=== PATIENT | female | born 1940 | race Caucasian/White ===

== ENCOUNTER 2020-08-15 17:05 | Emergency (ER) | payer OTHER ==
--- OUTSIDE RECORDS SUMMARY | 2020-08-15 17:11 | XMS REPORT | Continuity of Care Document ---
:1940 Author Organization [facility] t Address [address] [place] [address] Dr. Rod[address]guez [address] [place] [address] Care Team Providers Name Role Phone Unavailable Unavailable Unavailable Problems Condition Condition Condition Status Onset Resolution Last Treating Co mments Source Name Details Category Date Date Treatment Clinician Date Depression Depression Diagnosis [facility] Osteopenia Osteopenia Diagnosis [facility] Essential Essential Problem Active [facility] hypertensi hypertensi Mervat kes - on on [facility] l [facility] Cough Cough Problem [facility] Bronchitis Bronchitis Problem [facility] Screening Screening Problem Active [facility] for breast for breast Mervat kes - cancer cancer [facility] Hyperlipem Hyperlipem Diagnosis Active [facility] Other Other Problem Active [facility] chronic chronic [facility] - pain pain [facility] ADILIA ADILIA Diagnosis Active [facility] (obstructi (obstructi Mervat kes - ve sleep ve sleep Memori a apnea) apnea) l [facility] Wheeze Wheeze Problem Active [facility] Fever and Fever and Problem Active [facility] chills chills [facility] Osteoarthr Osteoarthr Problem Active [facility] 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[facility] - multiple multiple Memori a joints, joints, l unspecifie unspecifie Ou tpati d d ent osteoarthr osteoarthr Cl inics itis type itis type Allergies, Adverse Reactions, Alerts Allergy Allergy Status Severity Reaction(s) Onset Inactive Treating Comm ents Source Name Type Date Date Clinician novacane Adverse Active cardiac [facility] Reaction arrest [facility] Lisinopr Adverse Active cough [facility] il Reaction [facility] Medications Ordered Filled Start Stop Current Ordering Indication Dosage Frequency Signature Comments Components Source Medication Medication Date Date Medication? Clinician (SIG) Name Name Nicolle VERGARA Yes Kaitlynn [address] [facility] 2-24 [place] needed [facility] - 00:[facility]: [facility] Calcium + Calcium + Yes Kaitlynn [address] [facility] D3 D3 1-30 [place] with a [facility] - 00:00: meal [facility] 00 l [facility] Atorvastati Atorvastati Yes Kaitlynn [address] [facility] n Calcium n Calcium 1-30 [place] Luke s - 00:00: Memoria 00 l [facility] Glucos-Perico Glucos-Perico Yes Kaitlynn not [facility] droit-MSM droit-MSM 1-30 [place] defined L ukes - Complex Complex 00:00: Memoria 00 l [facility] Valsartan Valsartan Yes Kaitlynn [address] [facility] [place] [facility] - [facility] Meloxicam Meloxicam Kaitlynn take one [facility] 06-08 [place] tablet by [facility] - 00:00 mouth Memoria :00 daily l [facility] Procedures This patient has no known procedures. Encounters Start End Encounter Admission Attending Care Care Encounter Source Date/Time Date/Time Type Type Clinicians Facility Department ID 2019-12-19 2019-12-19 Outpatient Lucius Hurley [id number] [facility] 13:00[facility]00 13:00:00 [facility] Medicine Medicine Outpati ent Clinics 2019-12-04 2019-12-04 Outpatient Lucius Hurley [id number] [facility] 14:20:00 14:20:00 [facility] Medicine Medicine Outpati ent Clinics 2019-06-22 2019-06-22 Outpatient Lucius Hurley [id number] 14:00:00 14:00:00 [facility] Medicine l Medicine Outpati ent Clinics 2019-06-02 2019-06-02 Outpatient Lucius Hurley [id number] [facility] 11:00:00 11:00:00 [facility] Medicine l Medicine Outpati ent Clinics Results This patient has no known results.
--- NOTE | 2020-08-15 17:33 | ER ---
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 Sims, pt has been iw experiencing forgetfulness, is easily distracted, loses track of time and has not been interested in the normal things she is interested in, symptoms started over a year ago, pt states her daughter insisted on her being seen by Dr. Sims, had labs and EEG done earlier this week, was told her MRI was abnormal and needs to be seen in ER. Coronavirus screen: At this time, the client does not indicate any symptoms associated with coronavirus-19. Ebola Screen: Patient negative for fever greater than or equal to 101.5 degrees Fahrenheit, and additional compatible Ebola Virus Disease symptoms Patient denies exposure to infectious person. Patient denies travel to an Ebola-affected area in the 21 days before illness onset. No symptoms or risks identified at this time. Initial Sepsis Screen: Does the patient meet any 2 criteria? No. Patient's initial sepsis screen is negative. Does the patient have a suspected source of infection? No. Patient's initial sepsis screen is negative. Risk Assessment: Do you want to hurt yourself or someone else? Patient reports no desire to harm self or others. Onset of symptoms was August 15, 2020. 17:23 Method Of Arrival: Ambulatory iw 17:23 Acuity: CHANTALE 2 iw Historical: - Allergies: 17:27 Novocain; iw - Home Meds: 17:27 valsartan 160 mg oral tab 1 tab once daily [Active]; Lipitor 40 mg Oral tab 1 tab once iw daily [Active]; meloxicam oral oral once daily [Active]; - PMHx: 17:27 Hypertension; Hyperlipidemia; Arthritis; iw - PSHx: 17:27 Hysterectomy; Cholecystectomy; iw - Immunization history:: Adult Immunizations up to date. - Social history:: Smoking status: Patient denies any tobacco usage or history of. Screenin:22 Abuse screen: Denies threats or abuse. Nutritional screening: No deficits noted. rb3 Tuberculosis screening: No symptoms or risk factors identified. Fall Risk None identified. Assessment: 17:22 General: Appears in no apparent distress. comfortable, Behavior is calm, cooperative. rb3 Pain: Denies pain. Neuro: Level of Consciousness is awake, alert, obeys commands, Oriented to person, place, time, situation. Cardiovascular: Capillary refill < 3 seconds Patient's skin is warm and dry. Respiratory: Airway is patent Respiratory effort is even, unlabored, Respiratory pattern is regular, symmetrical. GI: No signs and/or symptoms were reported involving the gastrointestinal system. : Derm: Skin is pink, warm \T\ dry. Musculoskeletal: Range of motion: intact in all extremities. 18:20 Reassessment: Patient appears in no apparent distress at this time. No changes from rb3 previously documented assessment. 18:26 Reassessment: Called report to DELORES Rivera at [facility]. Information from the [facility] was rb3 given. All questions asked and answered. She would like a copy of the lab results sent with the pt if possible. 19:45 Reassessment: Patient appears in no apparent distress at this time. Patient is alert, rr5 oriented x 3, equal unlabored respirations, skin warm/dry/pink. report given to [facility] awake alert vital signs taken and recorded. hemodynamically stable. Vital Signs: 17:48 BP 188 / 71; Pulse 75; Resp 18; Temp 98.1; Pulse Ox 98% on R/A; dh4 18:44 BP 178 / 81; Pulse 74; Resp 16; Pulse Ox 98% on R/A; iw 19:45 BP 171 / 75; Pulse 79; Resp 16; Pulse Ox 99% ; rr5 ED Course: 17:07 Patient arrived in ED. as 17:07 Santy Rust MD is Attending Physician. kdr 17:22 Patient has correct armband on for positive identification. Bed in low position. Call rb3 light in reach. Side rails up X2. phototypesetting equipment monitor on. Pulse ox on. NIBP on. Warm blanket given. 17:25 Triage completed. iw 17:27 Arm band placed on. iw 17:37 CXR XRAY In Process Unspecified. EDMS 18:06 Inserted saline lock: 22 gauge in right antecubital area, using aseptic technique. rb3 Blood collected. 19:44 Bruce, River, RN is Primary Nurse. rr5 19:49 No provider procedures requiring assistance completed. Patient transferred, IV remains rr5 in place. intact, No redness/swelling at site. Administered Medications: 18:08 Drug: Keppra 1000 mg Route: IV; Rate: calculated rate; Site: right antecubital; rb3 18:43 Drug: Decadron - Dexamethasone 10 mg Route: IVP; Site: right antecubital; iw 18:44 Not Given (Physician Discretion): Lopressor 5 mg IVP once; Hold for SBP <100 or HR <60. iw give 2.5 mg at a time Outcome: 17:33 ER care complete, transfer ordered by MD. kdr 19:45 Transferred by ground EMS Transfer form completed. Note: [facility] rr5 19:45 Condition: stable 19:45 Instructed on the need for transfer. 19:45 Demonstrated understanding of instructions. rr5 19:49 Patient left the ED. rr5 Signatures: Dispatcher [employer] EDMS Santy Rust MD MD kdr Marilu Martinez as Wilma Alcala, DELORES RN River Bruce, RN RN rr5 Mike Trivedi [facility] Nathalia Woo, RN RN rb3 Corrections: (The following items were deleted from the chart) 18:18 17:22 Inserted saline lock: 22 gauge in right antecubital area, using aseptic rb3 technique. Blood collected. rb3 21:27 19:45 Transferred by ground EMS to [facility], Transfer form rr5 completed. rr5
--- NOTE | 2020-08-15 17:34 | EDPHYS ---
Physician Documentation [facility] Name: Zoey Russo Age: 79 yrs Sex: Female : 1940 Arrival Date: 08/15/2020 Time: 17:07 Bed 18 Private MD: ED Physician Santy Rust HPI: 08/15 17:33 This 79 yrs old Female presents to ER via Ambulatory with complaints of kdr abnormal mri. 17:33 The patient presents with Increased forgetfulness. Onset: The symptoms/episode kdr began/occurred gradually, 1 month(s) ago. Possible causes: CVA or TIA. Associated signs and symptoms: The patient has no apparent associated signs or symptoms. Current symptoms: In the emergency department the patient's symptoms are unchanged from the initial presentation. Patient's baseline: Neuro: alert and fully oriented, Motor: no deficits, Ambulation: walks without assistance, Speech: normal for age. The patient has not experienced similar symptoms in the past. The patient has been recently seen by a physician: The patient was seen by dr. Sims on the of last month and an outpatient w/u was initiated. Daughter had insisted that the patient be seen since she had had increasing forgetfulness over the past few weeks and months. She has a familial history of dementia. Historical: - Allergies: 17:27 Novocain; iw - Home Meds: 17:27 valsartan 160 mg oral tab 1 tab once daily [Active]; Lipitor 40 mg Oral tab 1 tab once iw daily [Active]; meloxicam oral oral once daily [Active]; - PMHx: 17:27 Hypertension; Hyperlipidemia; Arthritis; iw - PSHx: 17:27 Hysterectomy; Cholecystectomy; iw - Immunization history:: Adult Immunizations up to date. - Social history:: Smoking status: Patient denies any tobacco usage or history of. ROS: 17:33 Constitutional: Negative for fever, chills, and weight loss, Eyes: Negative for injury, kdr pain, redness, and discharge, ENT: Negative for injury, pain, and discharge, Neck: Negative for injury, pain, and swelling, Cardiovascular: Negative for chest pain, palpitations, and edema, Respiratory: Negative for shortness of breath, cough, wheezing, and pleuritic chest pain, Abdomen/GI: Negative for abdominal pain, nausea, vomiting, diarrhea, and constipation, Back: Negative for injury and pain, : Negative for injury, bleeding, discharge, and swelling, MS/Extremity: Negative for injury and deformity, Skin: Negative for injury, rash, and discoloration, Psych: Negative for depression, anxiety, suicide ideation, homicidal ideation, and hallucinations, Allergy/Immunology: Negative for hives, rash, and allergies, Endocrine: Negative for neck swelling, polydipsia, polyuria, polyphagia, and marked weight changes, Hematologic/Lymphatic: Negative for swollen nodes, abnormal bleeding, and unusual bruising. 17:33 Neuro: Positive for Forgetfulness. Exam: 17:33 Constitutional: This is a well developed, well nourished patient who is awake, alert, kdr and in no acute distress. Head/Face: Normocephalic, atraumatic. Eyes: Pupils equal round and reactive to light, extra-ocular motions intact. Lids and lashes normal. Conjunctiva and sclera are non-icteric and not injected. Cornea within normal limits. Periorbital areas with no swelling, redness, or edema. ENT: Nares patent. No nasal discharge, no septal abnormalities noted. Tympanic membranes are normal and external auditory canals are clear. Oropharynx with no redness, swelling, or masses, exudates, or evidence of obstruction, uvula midline. Mucous membranes moist. Neck: Trachea midline, no thyromegaly or masses palpated, and no cervical lymphadenopathy. Supple, full range of motion without nuchal rigidity, or vertebral point tenderness. No Meningismus. Chest/axilla: Normal chest wall appearance and motion. Nontender with no deformity. No lesions are appreciated. Cardiovascular: Regular rate and rhythm with a normal S1 and S2. No gallops, murmurs, or rubs. Normal PMI, no JVD. No pulse deficits. Respiratory: Lungs have equal breath sounds bilaterally, clear to auscultation and percussion. No rales, rhonchi or wheezes noted. No increased work of breathing, no retractions or nasal flaring. Abdomen/GI: Soft, non-tender, with normal bowel sounds. No distension or tympany. No guarding or rebound. No evidence of tenderness throughout. Back: No spinal tenderness. No costovertebral tenderness. Full range of motion. Skin: Warm, dry with normal turgor. Normal color with no rashes, no lesions, and no evidence of cellulitis. MS/ Extremity: Pulses equal, no cyanosis. Neurovascular intact. Full, normal range of motion. Neuro: Awake and alert, GCS 15, oriented to person, place, time, and situation. Cranial nerves II-XII grossly intact. Motor strength 5/5 in all extremities. Sensory grossly intact. Cerebellar exam normal. Normal gait. Psych: Awake, alert, with orientation to person, place and time. Behavior, mood, and affect are within normal limits. 17:33 ECG was reviewed by the Attending Physician. kdr Vital Signs: 17:48 BP 188 / 71; Pulse 75; Resp 18; Temp 98.1; Pulse Ox 98% on R/A; dh4 18:44 BP 178 / 81; Pulse 74; Resp 16; Pulse Ox 98% on R/A; iw 19:45 BP 171 / 75; Pulse 79; Resp 16; Pulse Ox 99% ; rr5 MDM: 17:33 Patient medically screened. kdr 17:33 Data reviewed: vital signs, nurses notes, lab test result(s), EKG, radiologic studies. kdr Counseling: I had a detailed discussion with the patient and/or guardian regarding: the historical points, exam findings, and any diagnostic results supporting the discharge/admit diagnosis, radiology results, the need to transfer to another facility. ED course: D/w Dr. Cordova/Neurosurg/[place] - accepted. Awaiting hospitalist. 17:57 ED course: D/w Dr. Wall accepted in transfer. kdr 11 17:08 Order name: CBC with Diff kdr 08/15 17:08 Order name: Chem 7 kdr 08/15 17:08 Order name: PT-INR kdr 08/15 17:08 Order name: LFT's kdr 08/15 17:08 Order name: CXR XRAY kdr 08/15 17:10 Order name: EKG - Nurse/Tech; Complete Time: 17:51 kdr EC:33 Rate is 74 beats/min. Rhythm is regular, Normal Sinus Rhythm with No ectopy. QRS [place] kdr is Normal. ID interval is normal. QRS interval is normal. QT interval is normal. Clinical impression: Normal ECG. Administered Medications: 18:08 Drug: Keppra 1000 mg Route: IV; Rate: calculated rate; Site: right antecubital; rb3 18:43 Drug: Decadron - Dexamethasone 10 mg Route: IVP; Site: right antecubital; iw 18:44 Not Given (Physician Discretion): Lopressor 5 mg IVP once; Hold for SBP <100 or HR <60. iw give 2.5 mg at a time Disposition: 08/15/20 17:33 Transfer ordered to [facility]. 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 - Reason for transfer: Higher level of care. - Accepting physician is Neuro surge. - Condition is Stable. - Problem is new. - Symptoms are unchanged. Signatures: Dispatcher [employer] EDMS Santy Rust MD MD kdr Wilma Alcala, DELORES RN iw River Bruce, RN RN rr5 Nathalia Woo, RN RN rb3 Corrections: (The following items were deleted from the chart) 19:49 17:33 08/15/2020 17:33 Transfer ordered to [facility]. 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 Reason for transfer: Higher level of care. Accepting physician is Neuro surge. Condition is Stable. Problem is new. Symptoms are unchanged. kdr
[2020-08-15] MEDS ORDERED: levETIRAcetam 1,000 MG in NA CHLORIDE 0.9% 100 ML IV ONE (18:00)
--- NOTE | 2020-08-15 18:04 | RAD REPORT ---
EXAM DESCRIPTION: RAD - Chest Single View - 08/15/2020 5:37 pm CLINICAL HISTORY: Brain mass Chest pain. COMPARISON: CHEST PA AND LAT 2 VIEW dated 07/10/2015; CHEST PA AND LAT 2 VIEW dated 06/07/2014; CHEST PA AND LAT 2 VIEW dated 11/11/2013 FINDINGS: Portable technique limits examination quality. The lungs are grossly clear. The heart is normal in size. No displaced fractures.Moderate hiatal zee ia. IMPRESSION: No acute intrathoracic process suspected.
[2020-08-15 18:36] LABS: Albumin 3.4 g/dL (3.4-5.0); Bilirubin Direct 0.1 mg/dL (0-0.2); Bilirubin Total 0.4 mg/dL (0.2-1.0); Potassium 3.9 mmol/L (3.5-5.1); Protein, Total 7.3 g/dL (6.4-8.2)
[2020-08-15 18:37] LABS: Protime INR 1.02
[2020-08-15 18:38] LABS: Absolute Lymphocytes (CBC) 3.2 K/uL (0.7-4.9); Basophils % 0.6 % (0-1.3); Hematocrit 40.9 % (36.0-45.0); Lymphocytes % 41.3 % (15.3-44.8); MPV 10.3 fL (7.6-11.3); RBC Red Blood Cell Count 4.65 M/uL (3.86-4.86)
[2020-08-15] MEDS ORDERED: dexAMETHasone 4 MG/ML VIAL ONE (18:49)
[2020-08-15] MEDS ORDERED: METOPROLOL TARTRATE 5 MG/5 ML INJ IV ONE (18:49)
[2020-08-15 21:37] VITALS: TEMP 98.1; O2SAT 98
[2020-08-15 21:38] VITALS: BP 178/81
== END 2020-08-15 19:49 | disposition short-term general hospital (02) ==
LOC: ER 17:05
DX: G93.9 Disorder of brain, unspecified (principal); I10 Essential (primary) hypertension; E78.5 Hyperlipidemia, unspecified; Z88.4 Allergy status to anesthetic agent
CPT/HCPCS: 93005; 85025; 80048; 36415; 85610; 80076; 71045; 96375; 96374; 99285; J1100; J1953